=== PATIENT | male | born 1990 | race Caucasian/White ===

== ENCOUNTER 2023-07-10 12:40 | Emergency (ER) | payer BC, OTHER ==
[2023-07-10] MEDS ORDERED: DIPHTH,PERTUSS(ACELL),TET 0.5 ML DISP.SYRIN IM ONE ×2 (12:47→12:55)
[2023-07-10] MEDS ORDERED: ACETAMINOPHEN 500 MG TABLET (FP) PO ONE (12:47)
[2023-07-10 12:54] VITALS: BP 138/93; PULSE 50; RESP 16; TEMP 98.6; BMI 25.8
[2023-07-10] MEDS ORDERED: ACETAMINOPHEN 500 MG TABLET (FP) ONE (12:54)
[2023-07-10] MEDS ORDERED: AMOX TR/POT CLAV 875MG/125MG TABLETS (FP) PO ONE (13:45)
[2023-07-10] MEDS ORDERED: AMOX TR/POT CLAV 875MG/125MG TABLETS (FP) ONE (13:59)
== END 2023-07-10 14:10 | disposition home or self-care (01) ==
LOC: FER 12:40
PROC: 3E0234Z Introduction of Serum, Toxoid and Vaccine into Muscle, Percutaneous Approach (ICD-10-PCS; principal; 2023-07-10)
DX: S62.636A Displaced fracture of distal phalanx of right little finger, initial encounter for closed fracture (principal); M79.644 Pain in right finger(s); R22.31 Localized swelling, mass and lump, right upper limb; W23.1XXA Caught, crushed, jammed, or pinched between stationary objects, initial encounter; Y99.0 Civilian activity done for income or pay
CPT/HCPCS: 73140-TC-RT-FY; 90715; 99283-25